=== PATIENT | male | born 1960 | race American Indian/Alaskan Native ===

== ENCOUNTER 2017-12-21 10:02 | Observation (INO) | payer BC ==
[2017-12-21] VITALS (7 sets, daily range): BP systolic 165–201; BP diastolic 80–98; TEMP 97.7–98.2; Ht 175.3 cm; Wt 127.0 kg
[~2017-12-21] VITALS: Ht 175.3 cm; Wt 127.0 kg
[2017-12-21 11:05] LABS: PLATELET COUNT 195 K/uL (142-355)
[2017-12-21 11:56] LABS: POTASSIUM 4.6 mmol/L (3.6-5.2)
[2017-12-22] VITALS: BP 158/96; TEMP 98
[2017-12-22 03:54] VITALS: BP 159/92; TEMP 97.8
--- NOTE | 2017-12-22 06:09 | NUR ---
12/22/17 0100 PT RESTING IN BED WITH EYES CLOSED, NO C/O VOICED. FAMILY AT BEDSIDE.
[2017-12-22 08:00] VITALS: BP 169/90; TEMP 98.5
[2017-12-22 12:00] VITALS: BP 161/83; TEMP 98.4
[2017-12-22] MEDS ORDERED: LISI20TA11 PO (12:04)
[2017-12-22] MEDS ORDERED: GLUCOPHAGE 500 MG PO (12:04)
[2017-12-22] MEDS ORDERED: ATOR20TA2 PO (12:04)
--- NOTE | 2017-12-22 12:21 | NUR ---
PATIENT'S IV REMOVED WITH CATHETER TIP INTACT. NO REDNESS OR SWELLING NOTED. PATIENT GIVEN DISCHARGE INSTRUCTIONS AND VERBALIZED UNDERSTANDING. PATIENT DISCHARGED HOME AT THIS TIME.
== END 2017-12-22 12:15 | disposition home or self-care (01) ==
LOC: ED 10:02 → MED/SURG 13:45
PROVIDERS: ADMIT Emergency Medicine
DX: R00.0 Tachycardia, unspecified (principal); E66.01 Morbid (severe) obesity due to excess calories; I10 Essential (primary) hypertension; E11.9 Type 2 diabetes mellitus without complications; E78.4 Other hyperlipidemia; I25.10 Atherosclerotic heart disease of native coronary artery without angina pectoris
CPT/HCPCS: 36415; 80053; 80061; 80307; 81000; 82550; 82553; 82948; 83880; 84484; 85027; 85379; 93005; 99220; 99284; G0378

== ENCOUNTER 2018-01-11 14:33 | Emergency (ER) | payer BC ==
[~2018-01-11] VITALS: Ht 177.8 cm; Wt 122.5 kg
[~2018-01-11 14:33] MED LIST: ATOR20TA2 PO; GLUCOPHAGE 500 MG PO; LISI20TA11 PO
[2018-01-11 14:38] VITALS: TEMP 98.9
[2018-01-11 15:47] VITALS: BP 161/67
== END 2018-01-11 15:54 | disposition home or self-care (01) ==
LOC: ED 14:33
DX: S93.401A Sprain of unspecified ligament of right ankle, initial encounter (principal); W20.8XXA Other cause of strike by thrown, projected or falling object, initial encounter
CPT/HCPCS: 99282

== ENCOUNTER 2018-11-06 09:28 | Emergency (ER) | payer BC ==
[~2018-11-06] VITALS: Ht 177.8 cm; Wt 122.5 kg
[2018-11-06 10:28] LABS: PLATELET COUNT 164 K/uL (142-355)
[2018-11-06 10:52] LABS: POTASSIUM 4.1 mmol/L (3.6-5.2)
[2018-11-06 12:35] VITALS: BP 158/87; TEMP 98.2
== END 2018-11-06 12:35 | disposition home or self-care (01) ==
LOC: ED 09:28
PROVIDERS: Family Medicine
DX: E11.65 Type 2 diabetes mellitus with hyperglycemia (principal); N47.1 Phimosis
CPT/HCPCS: 36415; 80053; 81000; 85027; 96372; 99283; J1815

== ENCOUNTER 2019-09-05 10:50 | Outpatient (CLI) | payer BC ==
[2019-09-06] MEDS ORDERED: METO50TA27 PO (18:11)
[2019-09-06] MEDS ORDERED: ASPIRIN325 M1 PO (18:11)
== END 2019-09-05 10:55 | disposition short-term general hospital (02) ==
LOC: AMB 10:50
DX: R07.89 Other chest pain (principal); M79.602 Pain in left arm; R00.0 Tachycardia, unspecified; R94.31 Abnormal electrocardiogram [ECG] [EKG]
CPT/HCPCS: A0425; A0427

== ENCOUNTER 2019-09-05 10:57 | Inpatient (IN) | payer BC ==
[~2019-09-05] VITALS: Ht 177.8 cm; Wt 126.8 kg
[2019-09-05] VITALS (27 sets, daily range): BP systolic 117–181; BP diastolic 76–116; TEMP 97.5–99.1; Ht 177.8 cm; Wt 126.8 kg
[2019-09-05 11:23] LABS: PLATELET COUNT 156 K/uL (142-355)
[2019-09-05 11:28] LABS: POTASSIUM 4.6 mmol/L (3.6-5.2); SODIUM 137 mmol/L (136-145)
[2019-09-06] VITALS (13 sets, daily range): BP systolic 118–174; BP diastolic 56–97; TEMP 97.7–98.6
[2019-09-06] MEDS ORDERED: ASPIRIN325 M1 PO (18:11)
[2019-09-06] MEDS ORDERED: METO50TA27 PO (18:11)
== END 2019-09-06 19:00 | disposition home or self-care (01) | DRG 309 ==
LOC: ED 10:57 → MED/SURG 12:00 → ICU 16:14
PROVIDERS: ADMIT Hospitalist
DX: R00.0 Tachycardia, unspecified (principal); Z68.41 Body mass index [BMI] 40.0-44.9, adult; I10 Essential (primary) hypertension; I25.10 Atherosclerotic heart disease of native coronary artery without angina pectoris; E78.49 Other hyperlipidemia; K21.9 Gastro-esophageal reflux disease without esophagitis; E11.9 Type 2 diabetes mellitus without complications; E66.01 Morbid (severe) obesity due to excess calories
CPT/HCPCS: 36416; 80053; 80320; 82550; 83880; 84443; 84484; 85027; 85379; 85610; 85730; 93005; 96365; 96375; 96376; 99284; J0360; J1650; J1815; J3490

== ENCOUNTER 2019-09-18 11:08 | Outpatient (CLI) | payer BC ==
[~2019-09-18 11:08] MED LIST changes: +ASPIRIN325 M1 PO; +METO50TA27 PO
== END 2019-09-18 21:17 | disposition home or self-care (01) ==
LOC: RESP 11:08
DX: R07.89 Other chest pain (principal); I10 Essential (primary) hypertension
CPT/HCPCS: 93306

== ENCOUNTER 2020-10-18 18:38 | Emergency (ER) | payer BC ==
[~2020-10-18] VITALS: Ht 177.8 cm; Wt 126.6 kg
[2020-10-18 20:00] VITALS: BP 175/99; TEMP 98.4
== END 2020-10-18 20:00 | disposition home or self-care (01) ==
LOC: ED 18:38
DX: N49.2 Inflammatory disorders of scrotum (principal)
CPT/HCPCS: 96372; 99283; J0696; J1885